=== PATIENT | female | born 1985 | race Hispanic/Latino ===

== ENCOUNTER 2019-04-24 09:36 | Emergency (ER) | payer OTHER ==
[~2019-04-24] VITALS: Ht 162.6 cm; Wt 68.0 kg
--- OUTSIDE RECORDS SUMMARY | 2019-04-24 09:39 | XMS REPORT ---
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 Allergies, Adverse Reactions, Alerts Allergy Name Allergy Type Status Severity Reaction(s) Onset Date Inactive Date Treating Clinician Comments No Known Drug Allergies DA Active U 2018-11-08 00:00:00 No Known Drug Allergies DA Active U 2009-11-12 00:00:00 Medications This patient has no known medications. Results Test Description Test Time Test Comments Text Results Atomic Results Result Comments SURGICAL SPECIMENS 2019-01-11 12:49:00 RUN DATE: 01/11/19 [facility] *LIVE* PAGE 1 RUN TIME: 1250 Specimen Inquiry RUN USER: INTERFACE PATIENT: KERRI GIVENS LOC: NIEVES #: [id number] AGE/SX: 33/F ROOM: RE11/09/18REG DR: Zulay Castaneda MD : 89 BED: DIS: STATUS: [facility] TLOC: SPEC #: [id number] RECD: 11/10/18 STATUS: MEHDIParis EVONNE #: [id number] TAMMY: 11/10/18 [facility] DR: Zulay Castaneda MD ENTERED: 12/30/18 SP TYPE: SURG SPEC OTHR DR: No Primary or Family PhysicianORDERED: GM LEVEL 4 CODES: [id number] - ENDOMETRIUM, NO COPIES TO: No Primary or Family Physician Zulay Castaneda MD [address] [place], [place] [id number] PROCEDURES: GM LEVEL 4 (Incomplete) TISSUES: 1. ENDOMETRIUM, NOS - Endometrium, POC FINAL DIAGNOSIS Uterine contents, removal: Immature chorionic villi, decidua, and gestational endometrium (products of conception). GROSS AND MICROSCOPIC GROSS EXAMINATION: Received in formalin and labeled "POC" are multiple fragments of blood clot and admixed blanco-glistening tissue, 7.5 cm in aggregate. tissue is not grossly identifiable. [employer] sections. MICROSCOPIC EXAMINATION: Admixed with blood clot and necrotic material are scattered immature chorionic villi without atypical features. The endometrial glands are hypersecretory and the stroma is diffusely decidualized. 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 ISCN nomenclature:nuc eduardo (DXZ1x1,DYZ3x0,[id number]),(RB1,RCAN1)x2 RECOMMENDATIONS:Genetic counseling is recommended. It is standard of care that no irreversible therapeuticaction be initiated on the basis of these abnormalscreening results alone. Standard cytogenetic analysis isrecommended. If cytogenetic analysis has beenordered from [employer], that result is pending. COMMENTS:About one half of all chromosome abnormalities found infirst trimester spontaneous abortions cannot bedetected by InSight, including structural abnormalities,mosaicism, and numerical abnormalities of otherchromosomes. [employer]Sight results are preliminary. In cases of XXresults, maternal cell admixture in the specimenmay have compromised the interpretation. InSight is the [employer] name forinterphase fluorescence in situ hybridization(FISH) analysis for chromosomes 13, 18, 21, X, and Y. Forstandard analyses, 50 cells are examined for eachprobe ([employer]). A chromosome-specificabnormal hybridization pattern in up to 10% of theanalyzed nuclei is considered within the normal range, andin more than 60% of the analyzed nuclei is consistent with an abnormal result. This test was developed and its performance characteristicsdetermined by [employer]. It has notbeen cleared or approved by the [place] Food and DrugAdministration. The FISH test results should be used in conjunction with classical cytogenetic analysis and/orclinical information. Signed:Erica Bernal, Ph.D CHROMOSOME ANALYSIS [id number] 08:15:00* Test Item Value Reference Range Comments CHROMOSOME ANALYSIS TISSUE (test code=CHROTIS) RESULTS: 45,X Abnormal female karyotype Metaphases Counted: 20 Banding Technique: GTWMetaphases Analyzed: 5 Number of Cultures: 2 Banding Resolution: 425 Metaphases Karyotyped: 2 Subculture: Y Dept. Section: [facility] INTERPRETATION:Cytogenetic analysis shows an abnormal chromosome complementwith 45 chromosomes due to the loss of a sex chromosome, resulting in monosomy X. This is consistent with Vick syndrome. The loss of a sex chromosome is the most common abnormalityfound in spontaneous abortions, with more than 99% of 45,Xfetuses aborting spontaneously (Regulo Mae et. al., Dhruv & Dhruv, Genetics in Medicine, 6th edition. [place]: [facility] [employer] 2001. Pp. 175). RECOMMENDATION:Genetic counseling. COMMENT:No other chromosome abnormalities are observed. The standardcytogenetic methodology utilized in this analysis does notroutinely detect subtle rearrangements or low-level mosaicism and cannot detect microdeletions. Also, it cannot detect molecular cytogenetic abnormalities (such as microdeletions and microduplications) that may be detectable by microarray analysis. [employer] is a business unit of [employer], a wholly-owned subsidiary of [employer]. 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 ISCN nomenclature:nuc eduardo (DXZ1x1,DYZ3x0,N51W0d6),(RB1,RCAN1)x2 RECOMMENDATIONS:Genetic counseling is recommended. It is standard of care that no irreversible therapeuticaction be initiated on the basis of these abnormalscreening results alone. Standard cytogenetic analysis isrecommended. If cytogenetic analysis has beenordered from [facility], that result is pending. COMMENTS:About one half of all chromosome abnormalities found infirst trimester spontaneous abortions cannot bedetected by [employer]Sight, including structural abnormalities,mosaicism, and numerical abnormalities of otherchromosomes. [employer]Sight results are preliminary. In cases of XXresults, maternal cell admixture in the specimenmay have compromised the interpretation. InSight is the [employer] name forinterphase fluorescence in situ hybridization(FISH) analysis for chromosomes 13, 18, 21, X, and Y. Forstandard analyses, 50 cells are examined for eachprobe ([employer]). A chromosome-specificabnormal hybridization pattern in up to 10% of theanalyzed nuclei is considered within the normal range, andin more than 60% of the analyzed nuclei is consistent with an abnormal result. This test was developed and its performance characteristicsdetermined by [employer]. It has notbeen cleared or approved by the US Food and DrugAdministration. The FISH test results should be used in conjunction with classical cytogenetic analysis and/orclinical information. Signed:Erica Bernal, Ph.D CHROMOSOME ANALYSIS [id number] 13:40:00* Test Item Value Reference Range Comments CHROMOSOME ANALYSIS TISSUE (test code=CHROTIS) CBC W/AUTO [id number] 09:49:00* Test Item Value Reference Range Comments WHITE BLOOD CELL (test code=WBC) 7.14 x10 3/uL 4.5-11.0 RED BLOOD CELL (test code=RBC) 4.41 x10 6/uL 3.54-5.02 HEMOGLOBIN (test code=HGB) 12.6 g/dL 11.0-15.0 HEMATOCRIT (test code=HCT) 37.6 % 33.0-45.0 MEAN CELL VOLUME (test code=MCV) 85.3 fL 81.0-99.0 MEAN CELL HGB (test code=MCH) 28.6 pg 27.0-33.0 MEAN CELL HGB CONCETRATION (test code=MCHC) 33.5 g/dL 33.0-37.0 RED CELL DISTRIBUTION WIDTH CV (test code=RDW) 13.3 % 11.5-14.5 RED CELL DISTRIBUTION WIDTH SD (test code=RDW-SD) 41.3 fL 37.0-54.0 PLATELET COUNT (test code=PLT) 408 x10 3/uL 150-400 MEAN PLATELET VOLUME (test code=MPV) 9.5 fL 7.0-9.0 NEUTROPHIL % (test code=NT%) 64.6 % 56.0-77.0 IMMATURE GRANULOCYTE % (test code=IG%) 0.4 % 0.0-2.0 LYMPHOCYTE % (test code=LY%) 23.1 % 14.0-32.0 MONOCYTE % (test code=MO%) 8.4 % 4.8-9.0 EOSINOPHIL % (test code=EO%) 3.1 % 0.3-3.7 BASOPHIL % (test code=BA%) 0.4 % 0.0-2.0 NUCLEATED RBC % (test code=NRBC%) 0.0 % 0-0 NEUTROPHIL # (test code=NT#) 4.61 x10 3/uL 2.0-7.6 IMMATURE GRANULOCYTE # (test code=IG#) 0.03 x10 3/uL 0.00-0.03 LYMPHOCYTE # (test code=LY#) 1.65 x10 3/uL 1.0-3.8 MONOCYTE # (test code=MO#) 0.60 x10 3/uL 0.1-0.8 EOSINOPHIL # (test code=EO#) 0.22 x10 3/uL 0.0-0.2 BASOPHIL # (test code=BA#) 0.03 x10 3/uL 0.0-0.2 NUCLEATED RBC # (test code=NRBC#) 0.00 x10 3/uL 0.0-0.1 MANUAL DIFF REQUIRED (test code=MDIFF) NO
[2019-04-24] MEDS ORDERED: KETOROLAC TROMETHAMINE 30 MG/ML VIAL IV STA (09:58)
[2019-04-24] MEDS ORDERED: AMPICILLIN SOD/SULBACTAM 1.5GM 50 ML IV STA (09:58)
[2019-04-24 10:16] LABS: BASOPHILS % 0.3 % (0.0-1.0); EOSINOPHILS # (AUTO) 0.1 (0.0-0.4); EOSINOPHILS % 1.8 % (0.0-6.0); HEMOGLOBIN 12.7 g/dL (12.0-16.0); LYMPHOCYTES # (AUTO) 0.9 (1.0-3.2); LYMPHOCYTES % 13.2 % (18.0-39.1); MEAN CORPUSCULAR HEMOGLOBIN 29.1 pg (28-32); MEAN CORPUSCULAR HGB CONC 34.3 g/dL (31-35); MEAN CORPUSCULAR VOLUME 84.7 fL (81-99); MONOCYTES # (AUTO) 0.9 (0.2-0.8); NEUTROPHILS # (AUTO) 4.8 (2.1-6.9); PLATELET COUNT 364 x10e3/uL (140-360); RED BLOOD COUNT 4.37 x10e6/uL (3.6-5.1); RED CELL DISTRIBUTION WIDTH 12.8 % (11.7-14.4)
[2019-04-24 10:39] LABS: ALANINE AMINOTRANSFERASE 125 IU/L (0-55); ALBUMIN 3.7 g/dL (3.5-5.0); ALKALINE PHOSPHATASE 113 IU/L (40-150); ANION GAP 8.9 mmol/L (8-16); BLOOD UREA NITROGEN 7 mg/dL (7-26); BUN/CREATININE RATIO 11 (6-25); CALCIUM 8.8 mg/dL (8.4-10.2); CARBON DIOXIDE 28 mmol/L (22-29); CHLORIDE 106 mmol/L (98-107); CREATININE, SERUM 0.64 mg/dL (0.57-1.11); EST GLOMERULAR FILTRATION RATE > 60 ML/MIN (60-); GLUCOSE 111 mg/dL (74-118); POTASSIUM 3.9 mmol/L (3.5-5.1); SODIUM 139 mmol/L (136-145)
[2019-04-24 10:42] LABS: CLARITY,URINE CLEAR (CLEAR); COLOR,URINE YELLOW (YELLOW)
[2019-04-24 10:43] LABS: AMPHETAMINES SCREEN,URINE NEGATIVE (NEGATIVE); BENZODIAZEPINES SCREEN,URINE NEGATIVE (NEGATIVE); KETONES,URINE TRACE (NEGATIVE); LEUKOCYTE ESTERASE ,URINE NEGATIVE (NEGATIVE); NITRITE,URINE NEGATIVE (NEGATIVE); PHENCYCLIDINE SCREEN,URINE NEGATIVE (NEGATIVE); PROTEIN,URINE DIPSTICK 1+ (NEGATIVE)
[2019-04-24 10:44] LABS: BILIRUBIN,URINE SMALL (NEGATIVE); URINE UROBILINOGEN 0.2 mg/dL (0.2 - 1)
[2019-04-24 10:52] LABS: BACTERIA,URINE FEW /HPF; EPITHELIAL CELLS,URINE MODERATE /LPF; WBC,URINE (MAN) 0-5 /HPF (0-5)
--- NOTE | 2019-04-24 12:10 | Diagnostic Imaging Report ---
Examination: CT Face with Contrast History:Left dental abscess Comparison studies: None Technique: Axial images were obtained through the maxillofacial region. Coronal and sagittal reconstructions obtained from the axial data. Dose modulation, iterative reconstruction, and/or weight based adjustment of the mA/kV was utilized to reduce the radiation dose to as low as reasonably achievable. Intravenous contrast: 100mL Isovue 370. Findings: Soft tissues: A rim enhancing 2.0 x 2.3 x 05cm (superoinferior x anteroposterior x transverse dimensions) collection along the buccal surface of the left mandibular body. Periapical lucency of the left mandibular posterior most molar tooth. Bones: No fractures or bony abnormalities. Orbits: Globes: Intact Extra or intraconal abnormalities: None. Paranasal sinuses: Clear. IMPRESSION: Odontogenic related left mandibular buccal surface 2.0 x 2.3 x 05cm abscess. Signed by: Dr. Martina Hernandez M.D. on 04/24/2019 12:07 PM
[2019-04-24 12:17] VITALS: BP 140/92
[2019-04-24] MEDS ORDERED: CHLORHEXIDINE473 ML SS (12:23)
[2019-04-24] MEDS ORDERED: BACTRIM DS TAB1 EACH PO (12:23)
[2019-04-24] MEDS ORDERED: SODIUM CHLORIDE 0.9% 50ML 50 ML ONE (13:45)
[2019-04-24] MEDS ORDERED: IOPAMIDOL 370 MG/ML 200 ML INFUS..BTL INJ ONE (13:45)
== END 2019-04-24 12:38 | disposition home or self-care (01) ==
LOC: ER 09:36
DX: K04.7 Periapical abscess without sinus (principal)
CPT/HCPCS: 36415; 70487; 80053; 80307; 81001; 84702; 85025; 99284; J0295; J1885; Q9967